=== PATIENT | female | born 1990 ===

== ENCOUNTER 2021-04-12 09:56 | Day surgery (SDC) | payer MEDICAID ==
[~2021-04-12 09:56] MED LIST: Lactated Ringers 1,000 ML IV SCH
[2021-04-12] MEDS ORDERED: Lactated Ringers 1,000 ML IV SCH (10:00)
--- NOTE | 2021-04-12 11:04 | PCM.PREANE ---
Preanesthetic Assessment - Procedure Proposed Procedure: EGD - Anesthesia/Transfusion/Family Hx Anesthesia History: Prior Anesthesia Without Reaction Family History of Anesthesia Reaction: No Transfusion History: No Prior Transfusion(s) - Review of Systems General: No Symptoms Pulmonary: No Symptoms (smokes 1 PPD) Cardiovascular: No Symptoms Gastrointestinal: No Symptoms (GERD well controlled) Neurological: No Symptoms Other: Reports: Thyroid Problems (Hypo) - Physical Assessment NPO Status Date: 04/11/21 NPO Status Time: 11:59 Vital Signs: Last Vital Signs Temp 98.6 F 04/12/21 10:50 Pulse 66 04/12/21 10:50 Resp 16 04/12/21 10:50 BP 123/71 04/12/21 10:50 Pulse Ox 98 04/12/21 10:50 Height: 5 ft 6 in Weight: 82.554 kg ASA Class: 2 Mental Status: Alert & Oriented x3 Airway Class: Mallampati = 2 Dentition: Reports: Normal Dentition Thyro-Mental Finger Breadths: 3 Mouth Opening Finger Breadths: 3 ROM/Head Extension: Full Lungs: Clear to Auscultation, Normal Respiratory Effort Cardiovascular: Regular Rate, Regular Rhythm - Lab Values: Laboratory Last Values Urine HCG, Qual NEGATIVE (NEGATIVE) 04/12/21 10:10 - Allergies Allergies/Adverse Reactions: Allergies Allergy/AdvReac Type Severity Reaction Status Date / Time metoclopramide [From Reglan] Allergy Agitation Verified 04/12/21 10:52 Penicillins Allergy Hives Verified 04/12/21 10:52 bandaids Allergy Redness Uncoded 04/12/21 10:52 - Acknowledgements Anesthesia Type Planned: General Anesthesia Pt an Appropriate Candidate for the Planned Anesthesia: Yes Alternatives and Risks of Anesthesia Discussed w Pt/Guardian: Yes Pt/Guardian Understands and Agrees with Anesthesia Plan: Yes PreAnesthesia Questionnaire HEENT History: Reports: None Cardiovascular History: Reports: None Respiratory History: Reports: Other (See Below) Other Respiratory History: asthma as a child Gastrointestinal History: Reports: GERD, Hepatitis, Other (See Below) Other Gastrointestinal History: Hepatitis C in the past with treatment, abdominal pain Genitourinary History: Reports: None 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: Musculoskeletal History: Reports: None Neurological History: Reports: None Psychiatric History: Reports: Addiction, Anxiety, Depression Other Psychiatric History: hx opoid dependence Endocrine/Metabolic History: Reports: Hypothyroidism Hematologic History: Reports: None Immunologic History: Reports: None Oncologic (Cancer) History: Reports: None Dermatologic History: Reports: Eczema - Past Surgical History Head Surgeries/Procedures: Reports: None HEENT Surgical History: Reports: Oral Surgery Other HEENT Surgeries/Procedures: wisdom teeth extraction Cardiovascular Surgical History: Reports: None Respiratory Surgical History: Reports: None GI Surgical History: Reports: None Female Surgical History: Reports: Section, Tubal Ligation Endocrine Surgical History: Reports: None Neurological Surgical History: Reports: None Musculoskeletal Surgical History: Reports: None Oncologic Surgical History: Reports: None Dermatological Surgical History: Reports: None - SUBSTANCE USE Tobacco Use Status *Q: Current Every Day Tobacco User Tobacco Use Within Last Twelve Months: Cigarettes Recreational Drug Use History: Yes - HOME MEDS Home Medications: Home Meds Levothyroxine [Synthroid] 100 mcg PO ACBREAKFAST 11/19/16 [History] Buprenorphine HCl/Naloxone HCl [Buprenorphine-Nalox 8-2 mg Tab] 2.5 tab SL DAILY 04/06/21 [History] Lactobacillus Acidophilus [Probiotic] 1 tab PO DAILY 04/06/21 [History] Multivit-Min/Folic Acid/Biotin [Hair, Skin and Nails Caplet] 1 tab PO DAILY 04/06/21 [History] Omeprazole Magnesium [Prilosec Otc] 20 mg PO DAILY 04/06/21 [History] - CURRENT (IN HOUSE) MEDS Current Meds: Current Medications Lactated Ringer's (Ringers, Lactated) 1,000 mls @ 125 mls/hr IV ASDIRECTED KODI Lactated Ringer's (Ringers, Lactated) 1,000 mls @ 125 mls/hr IV ASDIRECTED KODI
[2021-04-12] MEDS ORDERED: Propofol 200 MG/20 ML SDV ONE (11:59)
[2021-04-12] MEDS ORDERED: fentaNYL 100 MCG/2 ML SDV ONE (11:59)
[2021-04-12] MEDS ORDERED: Benzocaine 20% Topical Spray UD ONE (12:04)
--- NOTE | 2021-04-12 12:27 | PCM.OPNOTE ---
- General Post-Op/Procedure Note Date of Surgery/Procedure: 04/12/21 Operative Procedure(s): EGD with biopsies Findings: minimal gastritis Small hiatal hernia dictation number [id number] Pre Op Diagnosis: Epigastic pain Post-Op Diagnosis: minimal gastritis. Small hiatal hernia Anesthesia Technique: MAC Primary Surgeon: Donny Duarte Pathology: EGD biopsies Complications: None Condition: Good
--- NOTE | 2021-04-12 12:37 | PCM.POSTAN ---
POST ANESTHESIA ASSESSMENT - MENTAL STATUS Mental Status: Alert, Oriented - VITAL SIGNS Vital Signs: Last Vital Signs Temp 98.6 F 04/12/21 10:50 Pulse 66 04/12/21 10:50 Resp 16 04/12/21 10:50 BP 123/71 04/12/21 10:50 Pulse Ox 98 04/12/21 10:50 - RESPIRATORY Respiratory Status: Respiratory Rate WNL, Airway Patent, O2 Saturation Stable - CARDIOVASCULAR CV Status: Pulse Rate WNL, Blood Pressure Stable - GASTROINTESTINAL GI Status: No Symptoms - PAIN Pain Score: 0 - POST OP HYDRATION Hydration Status: Adequate & Stable
--- NOTE | 2021-04-12 12:49 | PCM48HPAN ---
Post Anesthesia Note - EVALUATION WITHIN 48HRS OF ANESTHETIC Vital Signs in Normal Range: Yes Patient Participated in Evaluation: Yes Respiratory Function Stable: Yes Airway Patent: Yes Cardiovascular Function Stable: Yes Hydration Status Stable: Yes Pain Control Satisfactory: Yes Nausea and Vomiting Control Satisfactory: Yes Mental Status Recovered: Yes Vital Signs: Last Vital Signs Temp 98.1 F 04/12/21 12:31 Pulse 80 04/12/21 12:46 Resp 16 04/12/21 12:46 BP 117/77 04/12/21 12:46 Pulse Ox 98 04/12/21 12:46 - COMMENTS/OBSERVATIONS Free Text/Narrative:: Pt doing well post-op. VSS. No apparent anesthetic complications. Dr. Ori Her
[2021-04-12 13:41] VITALS: BP 100/64; PULSE 76
--- NOTE | 2021-04-12 15:38 | OR ---
SURGEON: JUDY OMON MD DATE OF PROCEDURE: 04/12/2021 PREOPERATIVE DIAGNOSIS: Left upper quadrant and epigastric pain. POSTOPERATIVE DIAGNOSES: 1. Some minimal gastritis. 2. Small hiatal hernia. PROCEDURE PERFORMED: Esophagogastroduodenoscopy with biopsies. PRIMARY SURGEON: Judy Moon MD ANESTHESIA: With the anesthesiologist. EXTENT OF THE EGD: To the duodenum. SPECIMENS: EGD biopsies. COMPLICATIONS: None. REASON FOR PROCEDURE: Patient is a pleasant 31-year-old female who has been having abdominal pain for the past year. It is more in the epigastric and slightly to the left upper quadrant. She says the pain usually comes when her stomach is empty or right after eating, and especially after coffee. She says the coffee seems to trigger it more than anything else. Patient denies any issues with swallowing. PROCEDURE IN DETAIL: Physical examination was performed. The major risks and benefits associated with the procedure were explained to the patient in detail. The patient verbalized understanding and agreement of the same. The patient was then connected to the appropriate monitoring devices and IV started. EKG, pulse, pulse oximetry, blood pressure, and capnography were monitored throughout the entire procedure. Continuous oxygen and sedation were provided by the anesthesiologist. Sedation was began. After adequate sedation had been achieved, an upper endoscope was advanced under visualization without any difficulty in the upper GI tract. The anatomy and mucosa of the esophagus, GE junction, stomach, pylorus, and duodenum were inspected. Duodenum appeared normal. Scope was brought into the stomach. Both retrograde and antegrade views of the stomach were done. Patient did have some minimal gastritis mainly in the antrum area. Did do biopsies of the pylorus and antrum area to check for H pylori. Also did some random biopsies of the stomach body. Scope was brought up to the GE junction. GE junction was approximately 35 cm from the incisor. There was a good Z-line. Patient looked to have likely a small even sliding hiatal hernia that was very minimal. The scope was brought into the stomach. Stomach was desufflated. Scope was brought up through the esophagus. Esophagus appeared normal. Scope was completely removed and procedure was terminated. ENDOSCOPIC DIAGNOSES: 1. Minimal gastritis. 2. Likely a small hiatal hernia. RECOMMENDATIONS: Patient may follow up in clinic to go over the pathology. I also again recommend that she continue abstaining from her coffee and maybe try to cut back on her smoking. She should also continue taking her PPI. AUSTEN / MARCOS /[id number]
== END 2021-04-12 13:10 | disposition home or self-care (01) ==
LOC: MW.SDS 09:56
PROVIDERS: ATTEND Surgery
DX: K29.50 Unspecified chronic gastritis without bleeding (principal); K44.9 Diaphragmatic hernia without obstruction or gangrene; E03.9 Hypothyroidism, unspecified; F17.210 Nicotine dependence, cigarettes, uncomplicated; Z88.0 Allergy status to penicillin; Z91.09 Other allergy status, other than to drugs and biological substances; Z98.890 Other specified postprocedural states; Z79.899 Other long term (current) drug therapy; Z79.890 Hormone replacement therapy; Z88.8 Allergy status to other drugs, medicaments and biological substances
CPT/HCPCS: 43239; 81025; A9270; J2704; J3010; 00731

== ENCOUNTER 2021-08-19 14:46 | Emergency (ER) | payer MEDICAID ==
[2021-08-19 15:45] VITALS: BP 115/69; PULSE 80
[2021-08-19] MEDS ORDERED: Lidocaine 2% Viscous Solution 15 ML UD PO ONE (15:58)
[2021-08-19] MEDS ORDERED: Benzocaine 20% Topical Spray UD MUCMEM ONE (15:58)
== END 2021-08-19 16:31 | disposition home or self-care (01) ==
LOC: MW.ED 14:46
DX: K04.7 Periapical abscess without sinus (principal); K21.9 Gastro-esophageal reflux disease without esophagitis; E03.9 Hypothyroidism, unspecified; Z88.0 Allergy status to penicillin; Z91.048 Other nonmedicinal substance allergy status; Z88.8 Allergy status to other drugs, medicaments and biological substances; Z79.899 Other long term (current) drug therapy; Z72.0 Tobacco use
CPT/HCPCS: 99282; A9270; 99283

== ENCOUNTER 2021-10-01 08:44 | Emergency (ER) | payer MEDICAID ==
[2021-10-01] MEDS ORDERED: Clindamycin HCl 150 MG Cap PO STA (09:29)
[2021-10-01] MEDS ORDERED: Lidocaine 2% Viscous Solution 15 ML UD PO ONE (09:32)
[2021-10-01] MEDS ORDERED: Benzocaine 20% Topical Spray UD MUCMEM ONE (09:32)
[2021-10-01 11:04] VITALS: BP 115/75; PULSE 75
== END 2021-10-01 11:03 | disposition home or self-care (01) ==
LOC: MW.ED 08:44
DX: K04.7 Periapical abscess without sinus (principal); K21.9 Gastro-esophageal reflux disease without esophagitis; E03.9 Hypothyroidism, unspecified; Z88.0 Allergy status to penicillin; Z91.048 Other nonmedicinal substance allergy status; Z88.8 Allergy status to other drugs, medicaments and biological substances; Z79.899 Other long term (current) drug therapy
CPT/HCPCS: 99282; A9270; 99283